=== PATIENT | male | born 1955 | race Caucasian/White ===

== ENCOUNTER 2018-05-27 02:07 | Outpatient (CLI) | END 2018-05-27 02:27 | disposition short-term general hospital (02) | LOC: AMBL 02:07 | PROVIDERS: ATTEND Family Medicine | DX: R55 Syncope and collapse (principal); S00.93XA Contusion of unspecified part of head, initial encounter; R05 Cough; I10 Essential (primary) hypertension; E11.9 Type 2 diabetes mellitus without complications; Z95.5 Presence of coronary angioplasty implant and graft; W19.XXXA Unspecified fall, initial encounter; Y92.59 Other trade areas as the place of occurrence of the external cause ==